=== PATIENT | female | born 1995 ===

== ENCOUNTER → 2017-01-05 | Outpatient (REF) | payer OTHER ==
[2017-01-05 14:03] LABS: RETIC HEMOGLOBIN CONTENT CHr 24.2 PG (24-36); RETICULOCYTE ABSOLUTE ADVIA212 71 x10(9)/L (17-77)
[2017-01-05 14:05] LABS: REASON FOR REVIEW COMPREHENSIVE REVIEW; VITAMIN B12 LEVEL 760 PG/ML (247-911)
[2017-01-05 14:09] LABS: FERRITIN 6 NG/ML (8-252); PERCENT SATURATION 4.5 % (13.2-45.0); TOTAL IRON BINDING CAPACITY 402 UG/DL (250-450); TOTAL PROTEIN 7.3 GM/DL (6.4-8.2)
[2017-01-09 12:37] LABS: ALBUMIN 4.14 GM/DL (3.29-5.55); ALBUMIN % 56.7 % (55.8-66.1); GAMMA GLOBULIN % 17.9 % (11.1-18.8)
[2017-01-09 14:12] LABS: HEMOGLOBIN A 98.2 % (94.0-98.0)
== END ==
LOC: M LAB REF 12:35
PROVIDERS: ATTEND Internal Medicine Medical Oncology
DX: D64.9 Anemia, unspecified (principal)